=== PATIENT | female | born 1960 | race Caucasian/White ===

== ENCOUNTER 2023-05-06 16:28 | Emergency (ER) | payer MEDICARE, OTHER, SELFPAY ==
[2023-05-06 16:32] VITALS: BP 124/84; PULSE 98; RESP 18; TEMP 36.3; O2SAT 97; BMI 26.1
--- NOTE | 2023-05-06 16:41 | ED.GENADULT ---
HPI - General Adult General Time Seen by Provider: 16:41 Date Seen: 05/06/23 Chief complaint: Flank Pain Stated complaint: kidney stone, nausea, abdomen pain, heart burn Time Seen by Provider: 05/06/23 16:34 Source: patient and RN notes reviewed Mode of arrival: ambulatory Limitations: no limitations History of Present Illness HPI narrative: This 63-year-old female is coming in with concern that something is possibly wrong in abdomen, possible kidney stones that she believe she is not going to pass. She states she has known kidney stones that her too large to pass. She has not been feeling well and has had some epigastric and upper abdominal pain, had some heartburn earlier. Today she had a right upper side dull ache in about an hour ago it started hurting. She feels her urine is darker than usual. Has not noticed any blood. Did have a little nonbloody diarrhea earlier. No vomiting but there is nausea. States her appetite is diminished today. No fevers or chills. She has outside report of a CT from April 10, looks like she has had some mesenteric lymph nodes noted that have been stable from October. There were 5 mm nonobstructing kidney stones within the kidney, no evidence of extravasation or outside into the collecting system at all. She is wondering if she has a stone that is starting to obstruct and moved down. There is no prior history of instrumentation/surgery for kidney stones for her, remembers getting Flomax to help her pass her last 1. She had her gallbladder out due to pancreatitis. states that she had sludge in the duct. 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.3 - Other acute and subacute respiratory conditions due to chemicals, gases, fumes and vapors (ICD-10) Cough ?R05.9 - Cough, unspecified (ICD-10) Social History Smoking Status: Never smoker Exam Const: Vital Signs, click to edit/add: Vital Signs - 24 hr 05/06/23 16:32 Temperature 97.3 F L Pulse Rate [Right Pulse Oximeter] 98 Respiratory Rate 18 Blood Pressure [Ri ght Upper Arm] 124/84 Pulse Oximetry 97 Oxygen Delivery Me thod Room Air Documenting provider has reviewed patient's vital signs: yes Common normals: no apparent distress, oriented x3, no limitations, healthy appearing, alert and well nourished General appearance: cooperative, comfortable, well kempt and well developed HENMT: Common normals: normocephalic, head/scalp atraumatic and hearing grossly normal bilaterally Head and scalp: normocephalic and atraumatic Eye: Common normals: PERRL, EOMs intact bilaterally, conjunctivae normal and no scleral icterus Conjunctiva: conjunctiva(e) normal Pupil: PERRL Neck & C-Spine: Common normals: full ROM, no lymphadenopathy, supple, no meningeal signs, no JVD and thyroid normal Thyroid: thyroid normal Lymph: Lymphatic: no lymphadenopathy noted Chest: Common normals: inspection of chest normal and palpation of chest normal Resp: Common normals: normal respiratory effort, no retractions, no use of accessory muscles and clear to auscultation bilaterally Effort & inspection: able to speak in complete sentences Auscultation: clear to auscultation bilaterally Cardio: Common normals: no JVD, regular rate, regular rhythm, S1 normal heart sound, S2 normal heart sound, no gallops and no murmurs Rate: regular rate Rhythm: regular rhythm Heart sounds: S1 normal and S2 normal GI: Common normals: Normal to inspection, nondistended, normoactive bowel sounds present, soft to palpation, no hepatosplenomegaly and no masses Palpation: soft and no hepatosplenomegaly Other: Mild right upper quadrant tenderness without palpable mass, no rebound or guarding at this time. : Common normals: no CVA tenderness Bladder/kidney exam: no CVA tenderness Back & Pelvis: Common normals: no CVA tenderness Neuro: Common normals: oriented x3 Sensorium/orientation: alert Meningeal signs: no meningeal signs Psych: Appearance: well kempt Course Course Hospital Course: This 63-year-old female has had some heartburn, some upper abdominal symptoms now with some right flank pain with recent CT showing some stones within the right kidney, 5 mm. We will stab lotion IV, get full complement of blood work. Will also collected urinalysis. Have reviewed with her that I would like to see some preliminary lab work with the CBC and urinalysis before entertaining imaging. She is hemodynamically stable, not febrile. Intra-abdominal pathology is a consideration, will add on a troponin given she had some sense of heartburn earlier. This is not likely presentation of anything pulmonary or cardiac. Reevaluation(s) Time of Reevaluation #1: 19:09 Reevaluation #1: Reviewed with patient that there is a 7 mm stone, reviewed normal labs, not suggesting any other etiologies. Her pain is not bad. She has a history of collagenous colitis and does not use NSAIDs. She only uses Tylenol for pain. We discussed use of Tylenol baseline, Zofran for nausea and Flomax to potentially help increase chances for passage. I can send a small prescription of oxycodone from in [email or web address] for her as pharmacies are currently closed. Vital Signs Vital signs: Initial Vital Signs Temperature 97.3 F L 05/06/23 16:32 Temperature Source Temporal Artery Scan 05/06/23 16:32 Pulse Rate 98 05/06/23 16:32 Respiratory Rate 18 05/06/23 16:32 Blood Pressure 124/84 05/06/23 16:32 Blood Pressure Mean 97 05/06/23 16:32 Blood Pressure Position Sitting 05/06/23 16:32 Pulse Oximetry 97 05/06/23 16:32 Oxygen Delivery Method Room Air 05/06/23 16:32 Vital Signs Temperature 97.3 F L 05/06/23 16:32 Pulse Rate 98 05/06/23 16:32 Respiratory Rate 18 05/06/23 16:32 Blood Pressure 124/84 05/06/23 16:32 Pulse Oximetry 97 05/06/23 16:32 Oxygen Delivery Method Room Air 05/06/23 16:32 Temperature 97.3 F L 05/06/23 16:32 Pulse Rate 98 05/06/23 16:32 Respiratory Rate 18 05/06/23 16:32 Blood Pressure 124/84 05/06/23 16:32 Pulse Oximetry 97 05/06/23 16:32 Oxygen Delivery Method Room Air 05/06/23 16:32 Medical Decision Making Medical Records Medical records reviewed: Yes I reviewed the patient's medical records Medical records narrative: Patient has a CT from 04/10/2023. Cholecystectomy with mild CBD reservoir effect. Nonobstructing right renal calculi measuring up to 5 mm. Probable small cyst in the right kidney. No hydronephrosis or hydroureter. Hysterectomy and BSO. Scattered colonic diverticulosis without diverticulitis. Redemonstration of multiple prominent but not overtly enlarged lymph nodes scattered throughout the central abdominal mesentery, with surrounding hazy ground-glass opacity. No new or enlarging lymph node. Soft was that this could be mesenteric panniculitis, was showing stability from CT 11/28/2022 argues against a neoplastic process. Lab Data Lab results reviewed: Yes I reviewed the patient's lab results Labs: Lab Results 05/06/23 05/06/23 Range/Units 17:15 17:23 WBC 5.68 (4.50-11.00) K/uL RBC 4.79 (4.00-5.20) m/uL Hgb 13.8 (12.0-16.0) gm/dL Hct 41.8 (33.0-51.0) % MCV 87 (80-100) fL MCH 29 (26-34) pg MCHC 33 (32-36) gm/dL RDW Coeff of Keith 12.3 (11.5-15.5) % Plt Count 199 (140-440) K/uL Neut % (Auto) 61.8 (42.0-72.0) % Lymph % (Auto) 25.0 (20-44) % Mayes % (Auto) 10.4 (0.0-11.0) % Eos % (Auto) 2.6 (0.0-7.0) % Baso % (Auto) 0.2 (0.0-3.0) % Neut # (Auto) 3.51 (1.7-7.0) K/uL Lymph # (Auto) 1.42 (0.90-2.90) K/uL Mayes # (Auto) 0.60 (0.00-0.90) K/UL Eos # (Auto) 0.15 (0.00-0.50) K/uL Baso # (Auto) 0.01 (0.00-0.30) K/uL Abs Immat Gran (auto) 0.00 (0.00-0.30) K/uL Imm/Tot Granulo (auto) 0.0 % ESR < 2 L (2-20) mm/hr Sodium 136 (135-149) mmol/L Potassium 3.7 (3.6-5.1) mmol/L Chloride 100 (96-114) mmol/L Carbon Dioxide 28 (20-32) mmol/L BUN 18 (7-30) mg/dL Creatinine 0.5 (0.5-1.5) mg/dL Estimated Creat Clear 58.61 Estimated GFR 104 ml/min Glucose 90 (60-115) mg/dL Lactate 1.1 (0.5-1.9) mmol/L Calcium 9.8 (8.4-10.6) mg/dL Total Bilirubin 0.8 (0.1-1.5) mg/dL AST 21 (12-35) U/L ALT 21 (4-35) U/L Alkaline Phosphatase 107 (40-150) U/L Troponin I < 0.01 L (0.01-0.04) ng/mL C-Reactive Protein < 0.5 L (0.5-1.0) mg/dL Total Protein 7.3 (6.0-8.3) g/dL Albumin 4.4 (3.3-5.0) g/dL Lipase 56 (23-300) U/L Urine Color Yellow (Yellow) Urine Appearance Clear (Clear) Urine pH 5.5 (5.0-8.5) Ur Specific Dexter 1.015 (1.000-1.030) Urine Protein Negative (Negative) Urine Glucose (UA) Negative (Negative) Urine Ketones Negative (Negative) Urine Blood 3+ A (Negative) Urine Nitrite Negative (Negative) Urine Bilirubin Negative (Negative) Urine Urobilinogen 0.2 (0.2-1.0) Ur Leukocyte Esterase 1+ A (Negative) Urine RBC >100 A (0-2) Urine WBC 2-5 (0-5) Ur Squamous Epith Cells Few (None-Few) Urine Bacteria None (None) Imaging Data CT scan - abdomen: Attestation: I have reviewed the pertinent imaging results. Radiologist's impression: Patient: LEYDI DAILEY Facility:?[facility] Patient ID:?[id number] Study:?CT Abdomen/Pelvis STONE STUDY-05/06/2023 6:08:59 PM Ordering Physician:Chilo Miller Final Report: INDICATION: Right flank pain. History of stones. COMPARISON: None available TECHNIQUE: CT of the abdomen and pelvis without intravenous contrast per routine renal stone protocol. FINDINGS: A distal right ureteral stone causing ureterectasis and mild hydronephrosis measures 7 mm on image 96, series 2. An additional calculus in the lower pole of the right kidney which is nonobstructive measures 4 mm. No definite left-sided renal or ureteral calculi. Pelvic phleboliths. Mildly prominent right lower quadrant and mesenteric subcentimeter lymph nodes could be reactive. Hysterectomy changes. Colonic diverticula. No suspicious adnexal mass. Non-contrast examination significantly limits evaluation of solid organs and intravascular structures. Non cirrhotic liver. Small right hepatic lobe cyst. Adrenal glands appear unremarkable. No splenomegaly. No peripancreatic fluid collection. Sacral Tarlov cysts. No free intraperitoneal air or free fluid. No lymphadenopathy in the abdomen or pelvis. No aggressive osseous lesion. No suspicious focal or diffuse pulmonary opacities in lung bases. No pleural effusion. IMPRESSION: 7 mm distal right ureteral calculus causing mild ureterectasis and mild to moderate right-sided hydronephrosis. Please note that all CT scans at this facility use dose modulation, iterative reconstruction, and/or weight-based dosing when appropriate to reduce radiation dose to as low as reasonably achievable. Dictated by Moo Garcia MD @ 05/06/2023 6:56:48 PM (Electronic Signature) Critical Care Time Critical Care Time Critical Care Time: No Discharge Plan Discharge Clinical Impression: Renal colic on right side Patient Disposition: Home, Self-Care Condition: Stable Instructions: Kidney Stones (ED), Renal Colic (ED) Additional Instructions: Take Flomax daily until the stone passes, we will write for 1 week's worth. If you need more you should get this from your primary care provider or urologist. Drink plenty of fluids. Use Tylenol baseline for pain control. If needed for more severe pain, prescription of oxycodone is provided. Zofran is also given to help with nausea. Need to schedule a follow-up with her primary care provider this week or urology if you have 1. They need to follow up on this kidney stone, monitor you and do appropriate testing as indicated. If this stone is not passing, may ultimately need to see Urology. If at any point to have severe uncontrolled pain, develop vomiting and are unable to take medications, have fever with active kidney stone, do need to be re-evaluated. Activity Level: Activity as Tolerated Prescriptions: New tamsulosin 0.4 mg capsule 0.4 mg PO DAILY Qty: 7 0RF Follow Up/Referrals: Mera Velasquez MD [Staff Physician] - Stand Alone Forms: [employer] Info Instructions
[2023-05-06 17:31] LABS: Basophils Absolute Auto 0.01 K/uL (0.00-0.30); Basophils Percent Auto 0.2 % (0.0-3.0); Eosinophils Absolute Auto 0.15 K/uL (0.00-0.50); Eosinophils Percent Auto 2.6 % (0.0-7.0); Hematocrit 41.8 % (33.0-51.0); Hemoglobin* 13.8 gm/dL (12.0-16.0); Lactate* 1.1 mmol/L (0.5-1.9); Lymphocytes Absolute Auto 1.42 K/uL (0.90-2.90); Mean Corpuscular HGB Conc 33 gm/dL (32-36); Mean Corpuscular Hemoglobin 29 pg (26-34); Mean Corpuscular Volume 87 fL (80-100); Monocytes Percent Auto 10.4 % (0.0-11.0); Neutrophils Absolute Auto 3.51 K/uL (1.7-7.0); Neutrophils Percent Auto 61.8 % (42.0-72.0); Platelet Count* 199 K/uL (140-440); RDW Coefficient of Variation % 12.3 % (11.5-15.5); Red Blood Count 4.79 m/uL (4.00-5.20); White Blood Count* 5.68 K/uL (4.50-11.00)
[2023-05-06 17:33] LABS: Appearance Urine Clear (Clear); Bilirubin Urine Negative (Negative); Blood Urine 3+ (Negative); Color Urine Yellow (Yellow); Glucose Urine Negative (Negative); Ketones Urine Negative (Negative); Leukocyte Esterase Urine 1+ (Negative); Nitrite Urine Negative (Negative); Protein Urine Negative (Negative); Specific Gravity Urine 1.015 (1.000-1.030); Urobilinogen Urine 0.2 (0.2-1.0); pH Urine 5.5 (5.0-8.5)
[2023-05-06 17:34] LABS: Slide Review Reflex No
[2023-05-06] MEDS: ONDANSETRON 2 MG/ML inj 4 MG IVP (17:34)
[2023-05-06] MEDS: 0.9 % SODIUM CHLORIDE 1000 ml 1,000 ML 500 ML IV (17:34)
--- NOTE | 2023-05-06 17:46 | CRLHL7_ITS ---
For Patients: As a result of the Century Cures Act, medical imaging exams and procedure reports are released immediately into your electronic medical record. You may view this report before your referring provider. If you have questions, please contact your health care provider. INDICATION: Right flank pain. History of stones. COMPARISON: None available TECHNIQUE: CT of the abdomen and pelvis without intravenous contrast per routine renal stone protocol. FINDINGS: A distal right ureteral stone causing ureterectasis and mild hydronephrosis measures 7 mm on image 96, series 2. An additional calculus in the lower pole of the right kidney which is nonobstructive measures 4 mm. No definite left-sided renal or ureteral calculi. Pelvic phleboliths. Mildly prominent right lower quadrant and mesenteric subcentimeter lymph nodes could be reactive. Hysterectomy changes. Colonic diverticula. No suspicious adnexal mass. Non-contrast examination significantly limits evaluation of solid organs and intravascular structures. Non cirrhotic liver. Small right hepatic lobe cyst. Adrenal glands appear unremarkable. No splenomegaly. No peripancreatic fluid collection. Sacral Tarlov cysts. No free intraperitoneal air or free fluid. No lymphadenopathy in the abdomen or pelvis. No aggressive osseous lesion. No suspicious focal or diffuse pulmonary opacities in lung bases. No pleural effusion. IMPRESSION: 7 mm distal right ureteral calculus causing mild ureterectasis and mild to moderate right-sided hydronephrosis. Please note that all CT scans at this facility use dose modulation, iterative reconstruction, and/or weight-based dosing when appropriate to reduce radiation dose to as low as reasonably achievable. Dictated by Moo Garcia MD @ 05/06/2023 6:56:48 PM (Electronically Signed)
[2023-05-06 17:55] LABS: RBC Urine >100 (0-2); Squamous Epithelial Cell Urine Few (None-Few)
[2023-05-06 17:57] LABS: Albumin* 4.4 g/dL (3.3-5.0); Chloride* 100 mmol/L (96-114); Sodium* 136 mmol/L (135-149)
[2023-05-06 17:58] LABS: Potassium* 3.7 mmol/L (3.6-5.1)
[2023-05-06 17:59] LABS: Creatinine* 0.5 mg/dL (0.5-1.5); Est. Creatinine Clearance* 58.61; Estimated Glomerular Filt Rate 104 ml/min
[2023-05-06 18:00] LABS: Alkaline Phosphatase* 107 U/L (40-150); Aspartate Amino Transferase* 21 U/L (12-35); Bilirubin Total* 0.8 mg/dL (0.1-1.5); Carbon Dioxide* 28 mmol/L (20-32); Lipase* 56 U/L (23-300); Total Protein* 7.3 g/dL (6.0-8.3)
[2023-05-06 18:01] LABS: Alanine Aminotransferase* 21 U/L (4-35); Blood Urea Nitrogen* 18 mg/dL (7-30); Calcium* 9.8 mg/dL (8.4-10.6); Glucose* 90 mg/dL (60-115)
[2023-05-06 18:06] LABS: Erythrocyte SedimentationRate* < 2 mm/hr (2-20)
[2023-05-06 18:07] LABS: C Reactive Protein* < 0.5 mg/dL (0.5-1.0)
[2023-05-06 18:12] LABS: Troponin I* < 0.01 ng/mL (0.01-0.04)
[2023-05-06] MEDS: TAMSULOSIN HCL 0.4 MG CAPSULE PO (19:33)
== END 2023-05-06 19:55 | disposition home or self-care (01) ==
PROVIDERS: Emergency Provider Family Medicine
DX: N23 Unspecified renal colic (principal)
CPT/HCPCS: 36415; 74176; 80053; 81001; 83605; 83690; 84484; 85025; 85651; 86140; 96374; 99284; A9270; J2405; J7030

== ENCOUNTER 2023-09-13 11:50 | Inpatient (IN) | payer MEDICARE, OTHER, SELFPAY ==
[2023-09-13] VITALS (49 sets, daily range): BP systolic 97–146; BP diastolic 70–119; PULSE 61–146; RESP 16–18; TEMP 36.2–37; O2SAT 89–98; BMI 25.4
--- NOTE | 2023-09-13 12:16 | ED.ARRPALP ---
HPI - Arrhythmia/Palpitations General Chief Complaint: Arrhythmia/Palpitations Stated Complaint: Dizzy Time Seen by Provider: 09/13/23 12:08 History of Present Illness HPI narrative: Patient is a 63-year-old woman with no history of SVT but a family history of SVT comes in today with 1 day history of palpitations. She has had no fevers no chills no night sweats no chest pain. She is more short of breath than normal and feels like her heart is racing. She states that she takes no home medications. She really has minimal past medical history and certainly no cardiac history other than mitral valve repair a number of years ago. 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 EYES: No scleral icterus. LYMPH: No supraclavicular or cervical lymphadenopathy. SKIN: Visible skin seen during exam normal or with benign process only. EXT: No dependent lower extremity pedal edema. HEART: Regular rhythm tachycardic rate. LUNGS: Clear to auscultation bilaterally with no crackles or wheezes. ABD: Soft, non tender, non distended. PSYCH: Good eye contact, speech is not pressured. Const: Vital Signs, click to edit/add: Vital Signs - 24 hr 09/13/23 12:05 09/13/23 12:19 09/13/23 12:30 Temperature 97.1 F L Pulse Rate 126 H 124 H Pulse Rate [Apical ] 124 H Respiratory Rate 18 Blood Pressure Blood Pressure [Ri ght Upper Arm] 128/102 H Pulse Oximetry 93 95 95 Oxygen Delivery Me thod Room Air 09/13/23 12:34 09/13/23 12:45 09/13/23 12:46 Temperature Pulse Rate 124 H 131 H 124 H Pulse Rate [Apical ] Respiratory Rate Blood Pressure 146/103 H 137/108 H Blood Pressure [Ri ght Upper Arm] Pulse Oximetry 94 92 94 Oxygen Delivery Me thod 09/13/23 13:00 09/13/23 13:04 09/13/23 13:15 Temperature Pulse Rate 127 H 128 H 127 H Pulse Rate [Apical ] Respiratory Rate Blood Pressure Blood Pressure [Ri ght Upper Arm] Pulse Oximetry 95 95 96 Oxygen Delivery Me thod 09/13/23 13:16 09/13/23 13:30 09/13/23 13:31 Temperature Pulse Rate 124 H 123 H 122 H Pulse Rate [Apical ] Respiratory Rate Blood Pressure 137/94 H 131/96 H Blood Pressure [Ri ght Upper Arm] Pulse Oximetry 98 97 95 Oxygen Delivery Me thod 09/13/23 13:45 09/13/23 13:46 09/13/23 14:00 Temperature Pulse Rate 119 H 125 H 123 H Pulse Rate [Apical ] Respiratory Rate Blood Pressure 133/107 H Blood Pressure [Ri ght Upper Arm] Pulse Oximetry 95 95 95 Oxygen Delivery Me thod 09/13/23 14:01 09/13/23 14:15 09/13/23 14:16 Temperature Pulse Rate 126 H 128 H 126 H Pulse Rate [Apical ] Respiratory Rate Blood Pressure 144/119 H 143/108 H Blood Pressure [Ri ght Upper Arm] Pulse Oximetry 95 94 95 Oxygen Delivery Me thod 09/13/23 14:16 09/13/23 14:17 09/13/23 14:27 Temperature Pulse Rate 126 H 118 H 127 H Pulse Rate [Apical ] Respiratory Rate Blood Pressure 143/108 H 145/105 H Blood Pressure [Ri ght Upper Arm] Pulse Oximetry 95 95 94 Oxygen Delivery Me thod Course Course ED Course: Patient seen examined. EKG troponin CBC basic metabolic panel pending. Vital Signs Vital signs: Initial Vital Signs Temperature 97.1 F L 09/13/23 12:05 Temperature Source Temporal Artery Scan 09/13/23 12:05 Pulse Rate 124 H 09/13/23 12:05 Pulse Rhythm Regular 09/13/23 12:05 Pulse Strength 3+ Normal 09/13/23 12:05 Respiratory Rate 18 09/13/23 12:05 Blood Pressure 128/102 H 09/13/23 12:05 Blood Pressure Mean 110 H 09/13/23 12:05 Blood Pressure Position Semi-Fowlers 09/13/23 12:05 Pulse Oximetry 93 09/13/23 12:05 Oxygen Delivery Method Room Air 09/13/23 12:05 Vital Signs Temperature 97.1 F L 09/13/23 12:05 Pulse Rate 124 H 09/13/23 12:05 Respiratory Rate 18 09/13/23 12:05 Blood Pressure 128/102 H 09/13/23 12:05 Pulse Oximetry 93 09/13/23 12:05 Oxygen Delivery Method Room Air 09/13/23 12:05 Temperature 97.1 F L 09/13/23 12:05 Pulse Rate 127 H 09/13/23 14:27 Respiratory Rate 18 09/13/23 12:05 Blood Pressure 145/105 H 09/13/23 14:27 Pulse Oximetry 94 09/13/23 14:27 Oxygen Delivery Method Room Air 09/13/23 12:05 Medications Administered Medications: Generic Name Dose Route Start Last Admin Trade Name Freq PRN Reason Stop Dose Admin Diltiazem HCl 125 mg/ Sodium 125 mls @ 5 mls/hr 09/13/23 13:20 09/13/23 14:42 Chloride IVPB 20 mls/hr .TITRATE AUBRIE Infusion Protocol Discontinued Medications Generic Name Dose Route Start Last Admin Trade Name Freq PRN Reason Stop Dose Admin Diltiazem HCl 10 mg 09/13/23 12:26 09/13/23 12:39 Diltiazem 5 Mg/Ml Inj IVP 09/13/23 12:27 10 mg ONCE ONE Administration Sodium Chloride 1,000 mls @ 1,000 mls/hr 09/13/23 12:26 09/13/23 13:37 0.9 % Sodium Chloride 1000 Ml IV 09/13/23 13:25 Infused .Q1H AUBRIE Infusion MDM - Arrhythmia/Palpitations MDM Narrative Medical decision making narrative: Patient is 4 day history of symptoms and EKG shows atrial flutter. I did give 10 mg of Cardizem IV with little effect. The Cardizem drip is currently maximized. I did call and discuss the case with Cardiology in the do recommend metoprolol 25 mg orally now. We currently have no bed availability. Troponin is negative. Patient otherwise feels well. Lab workup is unremarkable with the only pending study being a D-Dimer. Per cardiology recommendations patient will be given 25 mg of oral metoprolol and will be signed out to my oncoming colleague. Lab Data Labs: Lab Results 09/13/23 09/13/23 Range/Units 12:33 12:35 WBC 5.20 (4.50-11.00) K/uL RBC 4.92 (4.00-5.20) m/uL Hgb 14.5 (12.0-16.0) gm/dL Hct 43.6 (33.0-51.0) % MCV 89 (80-100) fL MCH 30 (26-34) pg MCHC 33 (32-36) gm/dL RDW Coeff of Keith 11.8 (11.5-15.5) % Plt Count 213 (140-440) K/uL Neut % (Auto) 65.3 (42.0-72.0) % Lymph % (Auto) 23.7 (20-44) % Kent % (Auto) 7.3 (0.0-11.0) % Eos % (Auto) 2.5 (0.0-7.0) % Baso % (Auto) 0.4 (0.0-3.0) % Neut # (Auto) 3.40 (1.7-7.0) K/uL Lymph # (Auto) 1.23 (0.90-2.90) K/uL Kent # (Auto) 0.40 (0.00-0.90) K/UL Eos # (Auto) 0.13 (0.00-0.50) K/uL Baso # (Auto) 0.02 (0.00-0.30) K/uL Abs Immat Gran (auto) 0.04 (0.00-0.30) K/uL Imm/Tot Granulo (auto) 0.8 % D-Dimer Quant (PE/DVT) < 0.27 (0.00-0.50) ug/ml Sodium 139 (135-149) mmol/L Potassium 4.1 (3.6-5.1) mmol/L Chloride 104 (96-114) mmol/L Carbon Dioxide 28 (20-32) mmol/L Anion Gap 7 (7-15) mEq/L BUN 17 (7-30) mg/dL Creatinine 0.5 (0.5-1.5) mg/dL Estimated GFR 104 ml/min Glucose 111 (60-115) mg/dL Calcium 10.0 (8.4-10.6) mg/dL Troponin I < 0.01 L (0.01-0.04) ng/mL SARS-CoV-2 (PCR) Negative SARS-CoV-2 (Negative) Influenza Type A (PCR) Negative PCR FLU A (Negative) Influenza Type B (PCR) Negative PCR FLU B (Negative) RSV (PCR) Negative PCR RSV (Negative) Discharge Plan Discharge Clinical Impression: Atrial flutter Patient Disposition: Admitted As Observation Condition: Stable Activity Level: Other Discharge Diet: Other Follow Up/Referrals: Provider,Not a Local [Primary Care Provider] -
[2023-09-13] MEDS: 0.9 % SODIUM CHLORIDE 1000 ml 1,000 ML IV (12:38)
[2023-09-13 12:39] LABS: Basophils Absolute Auto 0.02 K/uL (0.00-0.30); Basophils Percent Auto 0.4 % (0.0-3.0); Eosinophils Absolute Auto 0.13 K/uL (0.00-0.50); Eosinophils Percent Auto 2.5 % (0.0-7.0); Hematocrit 43.6 % (33.0-51.0); Hemoglobin* 14.5 gm/dL (12.0-16.0); Immature Granulocytes Abs Auto 0.04 K/uL (0.00-0.30); Immature Granulocytes Pct Auto 0.8 %; Lymphocytes Absolute Auto 1.23 K/uL (0.90-2.90); Lymphocytes Percent Auto 23.7 % (20-44); Mean Corpuscular HGB Conc 33 gm/dL (32-36); Mean Corpuscular Hemoglobin 30 pg (26-34); Mean Corpuscular Volume 89 fL (80-100); Monocytes Percent Auto 7.3 % (0.0-11.0); Neutrophils Percent Auto 65.3 % (42.0-72.0); Platelet Count* 213 K/uL (140-440); RDW Coefficient of Variation % 11.8 % (11.5-15.5); Red Blood Count 4.92 m/uL (4.00-5.20)
[2023-09-13] MEDS: dilTIAZem 5 MG/ML inj 10 MG IVP (12:39)
[2023-09-13 12:48] LABS: Slide Review Reflex No
[2023-09-13 12:55] LABS: Chloride* 104 mmol/L (96-114); Potassium* 4.1 mmol/L (3.6-5.1); Sodium* 139 mmol/L (135-149)
[2023-09-13 12:57] LABS: Creatinine* 0.5 mg/dL (0.5-1.5); Estimated Glomerular Filt Rate 104 ml/min
[2023-09-13 12:58] LABS: Anion Gap 7 mEq/L (7-15); Blood Urea Nitrogen* 17 mg/dL (7-30); Carbon Dioxide* 28 mmol/L (20-32); Glucose* 111 mg/dL (60-115)
[2023-09-13 13:11] LABS: Troponin I* < 0.01 ng/mL (0.01-0.04)
[2023-09-13 13:20] LABS: PCR FLU A Negative PCR FLU A (Negative); PCR FLU B Negative PCR FLU B (Negative); PCR RSV Negative PCR RSV (Negative)
[2023-09-13 13:22] LABS: SARS PCR* Negative SARS-CoV-2 (Negative)
[2023-09-13] MEDS: dilTIAZem HCL 125 MG in 0.9 % SODIUM CHLORIDE 100 ml 100 ML IVPB (13:55)
--- NOTE | 2023-09-13 13:55 | ED.NURSE ---
Pt up ambulating to bathroom. Independent with cares.
--- NOTE | 2023-09-13 15:10 | CRLHL7_ITS ---
For Patients: As a result of the Century Cures Act, medical imaging exams and procedure reports are released immediately into your electronic medical record. You may view this report before your referring provider. If you have questions, please contact your health care provider. INDICATION: Shortness of breath. TECHNIQUE: Chest 1 views. COMPARISON: None. FINDINGS: Cardiovasculature and mediastinum: Heart size and vasculature are normal in caliber and appearance. Lungs and pleural spaces: Lungs are clear. No sign of infiltrate or mass. No sign of pleural effusion. No pneumothorax. Bones and soft tissues: No significant findings. IMPRESSION: No acute or significant findings. Dictated by Dany Chavez MD @ 09/13/2023 3:45:30 PM (Electronically Signed)
[2023-09-13 15:12] LABS: D Dimer Quantitative* < 0.27 ug/ml (0.00-0.50)
[2023-09-13] MEDS: METOPROLOL TARTRATE 25 MG TABLET 50 MG PO ×2 (16:21→21:31)
[2023-09-13] MEDS: dilTIAZem 30 MG TABLET 60 MG PO (16:35)
--- NOTE | 2023-09-13 19:45 | PC.NURSE ---
patient up to floor at 1810. Alert and oriented x4. EKG shows A-flutter. MD aware. IV in left AC SL and patent. Patient ambulates SBA.
[2023-09-13] MEDS: METOPROLOL TARTRATE 1 MG/ML inj 5 MG IVP (19:56)
[2023-09-13] MEDS: ACETAMINOPHEN 325 MG TABLET 650 MG PO (20:04)
--- NOTE | 2023-09-13 20:07 | P.IMHP_ITS ---
Hospitalist- H&P: HPI History of Present Illness Date Seen: 09/13/23 Chief complaint: Dizzy Narrative: Giuseppe Anrdew is a 63 year old female admitted through the emergency department with 4 day history of feeling ill. Four days prior to admission she felt fatigue malaise achiness dyspnea. She had chills without fever. She had a headache. She suspected she had COVID and started taking ivermectin and vitamin C and vitamin D and iodine spray. She felt a little better after a couple days except she still felt quite short of breath with any activity. She felt her heart was continuously racing and she tolerated very little activity. This brought her to the emergency room. Ten years ago she had a mitral valve repair. No other previous heart history. She reports she is just a generally otherwise well. No other recent illness. Review of Systems Narrative: She has been doing well prior to the last 4 days of symptoms described above [facility] Medical History (Updated 09/13/23 @ 20:19 by Umberto Lao MD) History of anxiety ?Z86.59 - Personal history of other mental and behavioral disorders (ICD-10) Nephrolithiasis ?N20.0 - Calculus of kidney (ICD-10) Collagenous colitis ?K52.831 - Collagenous colitis (ICD-10) Reactive airways dysfunction syndrome ?J68.3 - Other acute and subacute respiratory conditions due to chemicals, gases, fumes and vapors (ICD-10) Cough ?R05.9 - Cough, unspecified (ICD-10) Surgical History (Updated 09/13/23 @ 20:12 by Umberto Lao MD) History of cholecystectomy ?Z90.49 - Acquired absence of other specified parts of digestive tract (ICD- 10) H/O ureteroscopy ?Z98.890 - Other specified postprocedural states (ICD-10) Family History (Updated 09/13/23 @ 20:13 by Umberto Lao MD) Mother Tachycardia Social History (Updated 09/13/23 @ 20:14 by Umberto Lao MD) Narrative: She lives near [place]. Her sister has house there and she lives in an apartment over the barn. She does not smoke. She does not drink alcohol. Code status is full. Her daughter, Cindy Gibson, of [employer] is healthcare power of tax associate attorney What is your current living situation?: I presently have a place to live Problems where you live: no known problems Problems where you live details: No known problems In the past 12 months, utilities in danger of being shut off: no In past 12 months, lack of transportation kept you from medical appts, meetings, work, or getting things needed for daily living: no In the past 12 mos, have been you worried that your food would run out before you had money to buy more?: never true In the past 12 mos, the food you bought just didn't last and you didn't have money to buy more?: never true Highest level of school completed/degree received: Master's degree Smoking Status: Never smoker Do you use any of these nicotine containing products: None Second hand tobacco smoke exposure: No How often do you have a drink containing alcohol: never How often do you have six or more drinks on one occasion: Never AUDIT-C Alcohol total score: 0 Non-prescribed substance use: denies use Caffeine: Yes How often does anyone, including family, friends and others, physically hurt you : never How often does anyone, including family, friends and others, insult or talk down to you: never How often does anyone, including family, friends and others, threaten you with harm: never How often does anyone, including family, friends and others, scream or curse at you: never service: No Meds Home Medications and Allergies Home Medication Comments: P.r.n. Tylenol, p.r.n. diphenhydramine, nystatin powder, multivitamin, vitamins B, C, D, E Allergies Allergy/AdvReac Type Severity Reaction Status Date / Time ampicillin Allergy Unknown Verified 09/13/23 12:09 Exam Narrative: Exam Narrative: She is alert appears in no distress. She has a regular tachycardia in the low 120s. Head is normal. Eyes normal. Oropharynx is normal. Neck is supple without mass or adenopathy. Respirations are clear to auscultation. Cardiovascular: S1, S2, regular tachycardia. 1/6 systolic murmur. No gallop or rub. Abdomen is soft without tenderness or mass. Extremities without edema. Good peripheral pulses. Good peripheral perfusion. Const: Vital Signs, click to edit/add: Vital Signs - 24 hr 09/13/23 12:05 09/13/23 12:19 09/13/23 12:30 Temperature 97.1 F L Pulse Rate 126 H 124 H Pulse Rate [Apical ] 124 H Respiratory Rate 18 Blood Pressure Blood Pressure [Ri ght Upper Arm] 128/102 H Pulse Oximetry 93 95 95 Oxygen Delivery Me thod Room Air 09/13/23 12:34 09/13/23 12:45 09/13/23 12:46 Temperature Pulse Rate 124 H 131 H 124 H Pulse Rate [Apical ] Respiratory Rate Blood Pressure 146/103 H 137/108 H Blood Pressure [Ri ght Upper Arm] Pulse Oximetry 94 92 94 Oxygen Delivery Me thod 09/13/23 13:00 09/13/23 13:04 09/13/23 13:15 Temperature Pulse Rate 127 H 128 H 127 H Pulse Rate [Apical ] Respiratory Rate Blood Pressure Blood Pressure [Ri ght Upper Arm] Pulse Oximetry 95 95 96 Oxygen Delivery Me thod 09/13/23 13:16 09/13/23 13:30 09/13/23 13:31 Temperature Pulse Rate 124 H 123 H 122 H Pulse Rate [Apical ] Respiratory Rate Blood Pressure 137/94 H 131/96 H Blood Pressure [Ri ght Upper Arm] Pulse Oximetry 98 97 95 Oxygen Delivery Me thod 09/13/23 13:45 09/13/23 13:46 09/13/23 14:00 Temperature Pulse Rate 119 H 125 H 123 H Pulse Rate [Apical ] Respiratory Rate Blood Pressure 133/107 H Blood Pressure [Ri ght Upper Arm] Pulse Oximetry 95 95 95 Oxygen Delivery Me thod 09/13/23 14:01 09/13/23 14:15 09/13/23 14:16 Temperature Pulse Rate 126 H 128 H 126 H Pulse Rate [Apical ] Respiratory Rate Blood Pressure 144/119 H 143/108 H Blood Pressure [Ri ght Upper Arm] Pulse Oximetry 95 94 95 Oxygen Delivery Me thod 09/13/23 14:16 09/13/23 14:17 09/13/23 14:27 Temperature Pulse Rate 126 H 118 H 127 H Pulse Rate [Apical ] Respiratory Rate Blood Pressure 143/108 H 145/105 H Blood Pressure [Ri ght Upper Arm] Pulse Oximetry 95 95 94 Oxygen Delivery Me thod 09/13/23 14:28 09/13/23 14:30 09/13/23 14:31 Temperature Pulse Rate 126 H 123 H 127 H Pulse Rate [Apical ] Respiratory Rate Blood Pressure 138/110 H Blood Pressure [Ri ght Upper Arm] Pulse Oximetry 94 94 94 Oxygen Delivery Me thod 09/13/23 14:45 09/13/23 14:46 09/13/23 15:00 Temperature Pulse Rate 127 H 127 H 119 H Pulse Rate [Apical ] Respiratory Rate Blood Pressure 123/105 H Blood Pressure [Ri ght Upper Arm] Pulse Oximetry 93 94 92 Oxygen Delivery Me thod 09/13/23 15:01 09/13/23 15:15 09/13/23 15:16 Temperature Pulse Rate 124 H 118 H 113 H Pulse Rate [Apical ] Respiratory Rate Blood Pressure 127/97 H 116/90 H Blood Pressure [Ri ght Upper Arm] Pulse Oximetry 92 92 93 Oxygen Delivery Me thod 09/13/23 15:30 09/13/23 15:31 09/13/23 15:45 Temperature Pulse Rate 123 H 126 H 105 H Pulse Rate [Apical ] Respiratory Rate Blood Pressure 136/96 H Blood Pressure [Ri ght Upper Arm] Pulse Oximetry 94 93 94 Oxygen Delivery Me thod 09/13/23 15:46 09/13/23 16:00 09/13/23 16:01 Temperature Pulse Rate 124 H 123 H 123 H Pulse Rate [Apical ] Respiratory Rate Blood Pressure 125/100 H 138/107 H Blood Pressure [Ri ght Upper Arm] Pulse Oximetry 95 93 94 Oxygen Delivery Me thod 09/13/23 16:15 09/13/23 16:16 09/13/23 16:30 Temperature Pulse Rate 123 H 125 H 146 H Pulse Rate [Apical ] Respiratory Rate Blood Pressure 143/104 H Blood Pressure [Ri ght Upper Arm] Pulse Oximetry 92 93 89 Oxygen Delivery Me thod 09/13/23 16:32 09/13/23 16:33 09/13/23 17:10 Temperature Pulse Rate 124 H 121 H Pulse Rate [Apical ] Respiratory Rate Blood Pressure 135/90 H 112/73 Blood Pressure [Ri ght Upper Arm] Pulse Oximetry 95 94 Oxygen Delivery Me thod 09/13/23 17:13 09/13/23 17:15 09/13/23 17:17 Temperature Pulse Rate 61 85 87 Pulse Rate [Apical ] Respiratory Rate Blood Pressure 112/82 Blood Pressure [Ri ght Upper Arm] Pulse Oximetry 95 96 92 Oxygen Delivery Me thod 09/13/23 17:18 09/13/23 17:38 09/13/23 19:33 Temperature 98.6 F Pulse Rate 84 81 Pulse Rate [Apical ] Respiratory Rate 18 Blood Pressure Blood Pressure [Ri ght Upper Arm] Pulse Oximetry 93 95 95 Oxygen Delivery Me thod Room Air 09/13/23 19:33 Temperature Pulse Rate Pulse Rate [Apical ] Respiratory Rate 16 Blood Pressure Blood Pressure [Ri ght Upper Arm] Pulse Oximetry 95 Oxygen Delivery Me thod Room Air Documenting provider has reviewed patient's vital signs: yes Hospitalist - H&P: Result Labs Labs: Short CBC 09/13/23 Range/Units 12:33 WBC 5.20 (4.50-11.00) K/uL Hgb 14.5 (12.0-16.0) gm/dL Hct 43.6 (33.0-51.0) % Plt Count 213 (140-440) K/uL BMP 09/13/23 12:33 Sodium 139 Potassium 4.1 Chloride 104 Carbon Dioxide 28 BUN 17 Creatinine 0.5 Glucose 111 Calcium 10.0 Cardiac Enzymes 09/13/23 Range/Units 12:33 Troponin I < 0.01 L (0.01-0.04) ng/mL ECG Attestation: I personally reviewed and interpreted this ECG as follows: (Electrocardiograms show atrial flutter with 2-1 block and a rate of [address]-T changes. With rate control her pulse goes down to 59 with a 4- 1 block.) ECG interpretation date: 09/13/23 Assessment and Plan Assessment and plan (1) Atrial flutter: Problem comment: Patient responded better to metoprolol then to diltiazem. Anticipate rate control will be fairly difficult. Depending on her clinical course may need MAN with cardioversion. Initiate anticoagulation. Echocardiogram Status: Acute Plan Admit to the hospital for management of a flutter with RVR. Anticipate difficulties with rate control. May need MAN with cardioversion. Total time spent today is 80 minutes, 50 minutes in coordination of care and discussing with patient other providers ongoing management of atrial flutter.
[2023-09-13 20:21] LABS: Magnesium* 2.1 mg/dL (1.5-2.6)
[2023-09-13] MEDS: SODIUM CHLORIDE 0.9 % (FLUSH) 10 ML SYRINGE 5 ML IVF (21:32)
[2023-09-13] MEDS: APIXABAN 5 MG TABLET PO (22:02)
[2023-09-14] VITALS (9 sets, daily range): BP systolic 103–136; BP diastolic 77–97; PULSE 90–118; RESP 16–20; TEMP 36.3–37.3; O2SAT 94–96
[2023-09-14] MEDS: ACETAMINOPHEN 325 MG TABLET 650 MG PO ×2 (00:13→21:07)
[2023-09-14] MEDS: MELATONIN 3 MG TABLET PO ×2 (00:13→21:08)
[2023-09-14] MEDS: METOPROLOL TARTRATE 1 MG/ML inj 5 MG IVP ×3 (01:39→16:25)
[2023-09-14] MEDS: SODIUM CHLORIDE 0.9 % (FLUSH) 10 ML SYRINGE 5 ML IVF ×3 (06:29→20:58)
--- NOTE | 2023-09-14 06:44 | PC.NURSE ---
SHIFT NOTE -: Pt is A&O, pleasant and cooperative. Tele read a-flutter all night, rate was variable anywhere from the 60's to 120, PRN Metoprolol IV push given x3 overnight for resting HR >100. Pt reports SOB with exertion. VSS on RA. Denies CP and N/V. Pt reported tooth pain, PRN Tylenol given with pt reporting adequate relief. Pt up independently, approached pt for a weight this AM and pt wanted to wait until she woke up to use the BR this AM, pt will call when she is ready.
[2023-09-14] MEDS: APIXABAN 5 MG TABLET PO ×2 (09:14→20:58)
[2023-09-14] MEDS: METOPROLOL TARTRATE 50 MG TABLET PO ×2 (09:14→20:57)
[2023-09-14] MEDS: dilTIAZem 120 MG CAP.ER.24H PO ×2 (10:14→20:58)
[2023-09-14] MEDS: dilTIAZem 5 MG/ML inj 10 MG IVP (10:14)
[2023-09-14] MEDS: PERFLUTREN LIPID MICROSPHERES 2 ML VIAL IV (12:20)
--- NOTE | 2023-09-14 16:15 | PM.IMPN1 ---
Progress Note: A&P Assessment and plan (1) Atrial flutter: Problem details: - A Flutter RVR 146 bpm - 09/13 rate control initially achieved with IV diltiazem, po diltiazem, IV metoprolol tartrate, po metoprolol tartrate - initiated anticoagulation with apixaban on 09/13 - 09/14 attempted only IV and po metoprolol tartrate without success, thus restarted oral diltiazem with HR decreased to 100 bpm - TTE obtained 09/14 with results still pending Status: Acute (2) Status post mitral valve annuloplasty: Problem details: - OHS band therapy about 10 years ago Status: Acute Plan 1. Reviewed impression and plan with patient. Continue with efforts to achieve rate control and anticoagulation. 2. Explain to her that if were not able to achieve adequate rate control we may still need to consider transfer to tertiary medical facility for transesophageal echocardiogram and possibly attempted electrical cardioversion. 3. Patient agreeable with above stated plans and recommendations. Time Spent With Patient Total time spent: 40 minutes Subjective Date Seen: 09/14/23 Interval history: Hospital day 2. History of present illness: Giuseppe Andrew is a 63 year old female admitted through the emergency department with 4 day history of feeling ill. Four days prior to admission she felt fatigue malaise achiness dyspnea. She had chills without fever. She had a headache. She suspected she had COVID and started taking ivermectin and vitamin C and vitamin D and iodine spray. She felt a little better after a couple days except she still felt quite short of breath with any activity. She felt her heart was continuously racing and she tolerated very little activity. This brought her to the emergency room. Ten years ago she had a mitral valve repair. No other previous heart history. She reports she is just a generally otherwise well. No other recent illness. Still feels the fluttering in her chest. Feels improved compared to yesterday. Denies dyspnea at rest. Acknowledges ongoing dyspnea with exertion. Denies paroxysmal nocturnal dyspnea orthopnea. Denies chest heaviness, pressure, tightness, or pain. Denies syncope or near-syncope. Denies orthostasis. Did have a brief, transient episode of vertigo today but none prior or since. Exam Narrative: Exam Narrative: Appears comfortable and in no acute distress. Vision and hearing are grossly normal. Alert and oriented to self, place, time, situation. Friendly, cooperative, articulate. Lungs are clear to auscultation without wheezing, rhonchi, or rales. Heart tones with tachycardia, regular rhythm. Abdomen with active bowel sounds, soft, nontender. No lower extremity edema. Skin intact. No focal motor neurologic deficits. Const: Vital Signs, click to edit/add: Vital Signs - 24 hr 09/13/23 16:16 09/13/23 16:30 09/13/23 16:32 Temperature Pulse Rate 125 H 146 H 124 H Pulse Rate [Pulse Oximeter] Respiratory Rate Blood Pressure 143/104 H 135/90 H Blood Pressure [Ri ght Arm] Pulse Oximetry 93 89 95 Oxygen Delivery Me thod 09/13/23 16:33 09/13/23 17:10 09/13/23 17:13 Temperature Pulse Rate 121 H 61 Pulse Rate [Pulse Oximeter] Respiratory Rate Blood Pressure 112/73 Blood Pressure [Ri ght Arm] Pulse Oximetry 94 95 Oxygen Delivery Me thod 09/13/23 17:15 09/13/23 17:17 09/13/23 17:18 Temperature Pulse Rate 85 87 84 Pulse Rate [Pulse Oximeter] Respiratory Rate Blood Pressure 112/82 Blood Pressure [Ri ght Arm] Pulse Oximetry 96 92 93 Oxygen Delivery Me thod 09/13/23 17:38 09/13/23 19:00 09/13/23 19:33 Temperature 98.4 F 98.6 F Pulse Rate 81 Pulse Rate [Pulse Oximeter] 122 H Respiratory Rate 16 18 Blood Pressure Blood Pressure [Ri ght Arm] 97/70 Pulse Oximetry 95 96 95 Oxygen Delivery Me thod Room Air Room Air 09/13/23 19:33 09/13/23 23:00 09/13/23 23:00 Temperature 98.0 F Pulse Rate Pulse Rate [Pulse Oximeter] 79 79 Respiratory Rate 16 16 Blood Pressure Blood Pressure [Ri ght Arm] 102/78 Pulse Oximetry 95 96 Oxygen Delivery Me thod Room Air Room Air 09/13/23 23:00 09/14/23 01:38 09/14/23 03:00 Temperature 97.4 F L Pulse Rate 75 Pulse Rate [Pulse Oximeter] 111 H 104 H Respiratory Rate 16 18 Blood Pressure Blood Pressure [Ri ght Arm] 103/81 109/88 Pulse Oximetry 96 95 Oxygen Delivery Me thod Room Air Room Air 09/14/23 07:00 09/14/23 07:00 09/14/23 07:45 Temperature 97.9 F Pulse Rate 107 H Pulse Rate [Pulse Oximeter] 109 H 109 H Respiratory Rate 20 Blood Pressure Blood Pressure [Ri ght Arm] 116/89 Pulse Oximetry 94 Oxygen Delivery Me thod Room Air 09/14/23 11:00 09/14/23 15:44 Temperature 99.2 F Pulse Rate 107 H Pulse Rate [Pulse Oximeter] 90 Respiratory Rate 20 Blood Pressure Blood Pressure [Ri ght Arm] 118/85 Pulse Oximetry 95 Oxygen Delivery Me thod Room Air Labs Labs: Laboratory Results - last 24 hr 09/13/23 09/13/23 12:33 19:54 Magnesium 2.1 TSH 1.740 Lab Acknowledgement Test Added
--- NOTE | 2023-09-14 19:40 | PC.NURSE ---
End of shift [id number] - Pt alert, oriented, and pleasant. Up to bathroom with standby assistance related to tachycardia. Continent of bowel and bladder. Tolerating RA and regular diet. Denies SOB and chest pain at rest and with activity. Pt reported experiencing episode of dizziness and stated the room was spinning. RN recorded vital signs and provided support, MD notified. No orders given, pt reported improvement without intervention. Pt reported anxiety related to hospital stay and care plan, RN provided education and answered questions as needed.
[2023-09-15 02:22] VITALS: BP 122/85; PULSE 113; RESP 16; TEMP 35.7; O2SAT 91
--- NOTE | 2023-09-15 05:52 | PC.NURSE ---
End of Shift: Pt remained AO, pleasant and cooperative throughout shift. Tolerating diet well, denied any pain. Reported slight headache and requested PRN tylenol and melatonin to aid in sleep. Pt slept well during the night. Remained in A flutter with RVR throughout shift. O2 sats remained around 96% throughout shift, RA. Denied any dizziness or lightheadedness. SBA.
[2023-09-15 07:00] VITALS: BP 123/91; PULSE 111; PULSE 113; PULSE 116; RESP 16; TEMP 37.1; O2SAT 94
[2023-09-15 07:12] LABS: HCO3 VBG 30 mmol/L (21-28); PCO2 VBG 48 mmHG (40-50); pH VBG 7.409 (7.32-7.43)
[2023-09-15 07:21] LABS: Hemoglobin* 13.6 gm/dL (12.0-16.0)
[2023-09-15 07:37] LABS: Chloride* 104 mmol/L (96-114); Potassium* 4.3 mmol/L (3.6-5.1); Sodium* 139 mmol/L (135-149)
[2023-09-15 07:40] LABS: Anion Gap 6 mEq/L (7-15); Blood Urea Nitrogen* 14 mg/dL (7-30); Calcium* 9.8 mg/dL (8.4-10.6); Carbon Dioxide* 29 mmol/L (20-32); Creatinine* 0.4 mg/dL (0.5-1.5); Est. Creatinine Clearance* 58.61; Estimated Glomerular Filt Rate 110 ml/min; Glucose* 98 mg/dL (60-115); Magnesium* 2.1 mg/dL (1.5-2.6)
[2023-09-15 07:50] LABS: NT Pro B Type NatriureticPept* 2040 pg/mL; Troponin I* < 0.01 ng/mL (0.01-0.04)
[2023-09-15 08:51] VITALS: PULSE 111
[2023-09-15] MEDS: DIGOXIN 250 MCG TABLET PO (08:51)
[2023-09-15] MEDS: METOPROLOL TARTRATE 50 MG TABLET 75 MG PO (08:51)
[2023-09-15] MEDS: APIXABAN 5 MG TABLET PO (08:51)
[2023-09-15] MEDS: dilTIAZem 120 MG CAP.ER.24H PO (08:52)
[2023-09-15 11:00] VITALS: BP 118/82; PULSE 94; RESP 16; O2SAT 92
[2023-09-15] MEDS: LACTATED RINGERS 1000 ML 1,000 ML 75 ML IV (12:32)
[2023-09-15] MEDS: SODIUM CHLORIDE 0.9 % (FLUSH) 10 ML SYRINGE 5 ML IVF (12:32)
--- NOTE | 2023-09-15 14:24 | PC.NURSE ---
Nursing Care Hours: [id number] Pt this shift calm and cooperative with cares, alert and oriented. No c/o pain. Up independently. Voiding, no BM. IV patent. NPO initiated, fluids running. EKG completed per order. Pt remains in A.flutter, digoxin added and pt educated on SE. Rate in morning about 110-120, after morning meds rate controlled. Nurse to nurse given over the phone to Korina NAVA at [facility]. EMS transfer.
--- NOTE | 2023-09-20 16:11 | PM.DS1 ---
DS: Providers Provider Date Seen: 09/15/23 Date of admission: 09/13/23 18:06 Primary care physician: Not a Local Provider Admitting Clinician: Umberto Lao MD Attending Physician on discharge: Nemesio Howell MD Date of Discharge: 09/15/23 DS: Diagnosis Discharge Diagnosis (1) Atrial flutter with rapid ventricular response: Status: Acute (2) Tachycardia-induced cardiomyopathy: Status: Acute (3) Atrial flutter: Status: Acute Problem details: - A Flutter RVR 146 bpm - 09/13 rate control initially achieved with IV diltiazem, po diltiazem, IV metoprolol tartrate, po metoprolol tartrate - initiated anticoagulation with apixaban on 09/13 - 09/14 attempted only IV and po metoprolol tartrate without success, thus restarted oral diltiazem with HR decreased to 100 bpm - TTE obtained 09/14 with preliminary results suggesting EF 30-35% and only mild MR status post history of mitral annuloplasty in the remote past. (4) Status post mitral valve annuloplasty: Status: Acute Problem details: - OHS band therapy about 10 years ago (5) Reactive airways dysfunction syndrome: Status: Acute DS: Summary Hospital Course Hospital Course: 63-year-old woman presented with symptomatic new onset atrial flutter with RVR. Efforts to control this with rate-controlling agents were unsuccessful including IV and oral metoprolol, IV and oral diltiazem. House able to speak with planner and hospitalists an [facility] system who accepted the patient in transfer for possible MAN cardioversion and additional intervention is warranted. Status at Discharge Functional status at discharge: independent ambulation Overall status at discharge: patient is not back to baseline Time Spent with Patient Time attestation: Total time spent providing and/or coordinating discharge services: Time spent: Greater than 30 minutes Exam Narrative: Exam Narrative: Appears comfortable and in no acute distress. Vision and hearing are grossly normal. Alert and oriented to self, place, time, situation. Friendly, cooperative, articulate. Lungs are clear to auscultation without wheezing, rhonchi, or rales. Heart tones with tachycardia, regular rhythm. Abdomen with active bowel sounds, soft, nontender. No lower extremity edema. Skin intact. No focal motor neurologic deficits. DS: Data Imaging Transthoracic echocardiogram: Radiologist's impression: EF 30-35%. Mild MR with previous mitral annuloplasty noted. Discharge Plan Discharge Disposition: [facility] Discharge Location: [facility] Date of Admission: 09/13/23 18:06 Attending Provider on Discharge: Nemesio Howell Primary Care Provider: Provider,Not a Local Condition: Stable Discharge Orders: Transfer of Care to Other Hospital (ORDER); Ordered 09/20/23 Ordered By: Nemesio Howell Discharge Comments: NPO starting 0945 09/15/2023 Oxygen: No Urinary Catheter: No Services not available here: Cardiology services, MAN, DC cardioversion, etc.
== END 2023-09-15 13:07 | disposition short-term general hospital (02) | DRG 310 ==
LOC: ED 15:34 → MEDSURG 21:23
PROVIDERS: Internal Medicine; Admitting Provider Family Medicine; Emergency Provider Internal Medicine; Visit Provider Family Medicine
DX: I48.92 Unspecified atrial flutter (principal); R00.0 Tachycardia, unspecified; I42.8 Other cardiomyopathies; Z95.2 Presence of prosthetic heart valve; J68.3 Other acute and subacute respiratory conditions due to chemicals, gases, fumes and vapors
CPT/HCPCS: 36415; 71045; 80048; 82803; 83735; 83880; 84443; 84484; 85018; 85025; 85379; 87631; 93005; 93306; 99283; 99284; A9270; J3490; J7030; J7120; Q9957

== ENCOUNTER 2023-09-15 12:58 | Outpatient (CLI) | payer MEDICARE, OTHER, SELFPAY | END 2023-09-15 12:59 | disposition home or self-care (01) | LOC: AMB 09-21 17:13 | PROVIDERS: Visit Provider Student in an Organized Health Care Education/Training Program | DX: R07.89 Other chest pain (principal); R53.83 Other fatigue | CPT/HCPCS: A0425; A0427 ==